=== PATIENT | female | born 1970 | race Caucasian/White ===

== ENCOUNTER 2018-08-31 21:35 | Emergency (ER) | payer OTHER ==
[~2018-08-31] VITALS: Ht 160 cm; Wt 118.2 kg
[2018-08-31 21:40] VITALS: BP 187/90; TEMP 97.6
[2018-08-31] MEDS ORDERED: CELEXA40 MG PO (22:02)
[2018-09-01] MEDS ORDERED: FLEXERIL 1010 MG/TAB PO (00:02)
[2018-09-01] MEDS ORDERED: NORCO 325 MG-51 TAB PO (00:02)
[2018-09-01 00:25] VITALS: PULSE 72
== END 2018-09-01 00:25 | disposition home or self-care (01) ==
LOC: COL.ER 21:35
DX: S40.012A Contusion of left shoulder, initial encounter (principal); S70.02XA Contusion of left hip, initial encounter; S30.0XXA Contusion of lower back and pelvis, initial encounter; F32.9 Major depressive disorder, single episode, unspecified; F41.9 Anxiety disorder, unspecified; E66.01 Morbid (severe) obesity due to excess calories; Z68.42 Body mass index [BMI] 45.0-49.9, adult; Z88.0 Allergy status to penicillin; W00.0XXA Fall on same level due to ice and snow, initial encounter; Y99.0 Civilian activity done for income or pay
CPT/HCPCS: J1885

== ENCOUNTER 2018-11-03 14:30 | Outpatient (RCR) | payer OTHER ==
[~2018-11-03 14:30] MED LIST: CELEXA40 MG PO; FLEXERIL 1010 MG/TAB PO; NORCO 325 MG-51 TAB PO
== END 2018-11-15 16:18 | disposition home or self-care (01) ==
LOC: WSPT 14:30
DX: S16.1XXD Strain of muscle, fascia and tendon at neck level, subsequent encounter (principal); S40.012D Contusion of left shoulder, subsequent encounter; S30.0XXD Contusion of lower back and pelvis, subsequent encounter; M54.5 Low back pain; Z79.899 Other long term (current) drug therapy
CPT/HCPCS: G0283-GP

== ENCOUNTER 2018-11-03 15:10 | Outpatient (RCR) | payer OTHER | END 2018-12-03 | disposition still patient (30) | LOC: WSOH | DX: S16.1XXA Strain of muscle, fascia and tendon at neck level, initial encounter (principal); S40.012A Contusion of left shoulder, initial encounter; S30.0XXA Contusion of lower back and pelvis, initial encounter; W01.0XXA Fall on same level from slipping, tripping and stumbling without subsequent striking against object, initial encounter; Y93.E9 Activity, other interior property and clothing maintenance; Y92.59 Other trade areas as the place of occurrence of the external cause; Y99.0 Civilian activity done for income or pay; Z79.899 Other long term (current) drug therapy ==

== ENCOUNTER → 2018-12-28 | Outpatient (CLI) | payer SELFPAY | LOC: COL.RAD 08:34 | DX: M19.012 Primary osteoarthritis, left shoulder (principal); M75.102 Unspecified rotator cuff tear or rupture of left shoulder, not specified as traumatic; S16.1XXD Strain of muscle, fascia and tendon at neck level, subsequent encounter; S40.012D Contusion of left shoulder, subsequent encounter; S30.0XXD Contusion of lower back and pelvis, subsequent encounter | CPT/HCPCS: A9585; Q9967 ==

== ENCOUNTER 2019-01-12 14:56 | Outpatient (RCR) | payer OTHER | END 2019-04-10 | disposition home or self-care (01) | LOC: WSOH | DX: S16.1XXD Strain of muscle, fascia and tendon at neck level, subsequent encounter (principal); S40.012D Contusion of left shoulder, subsequent encounter; S30.0XXD Contusion of lower back and pelvis, subsequent encounter; M54.5 Low back pain; F41.9 Anxiety disorder, unspecified; Z79.899 Other long term (current) drug therapy; Z90.49 Acquired absence of other specified parts of digestive tract; Z90.710 Acquired absence of both cervix and uterus | CPT/HCPCS: J1030 ==